=== PATIENT | male | born 1985 | race Two or more races ===

== ENCOUNTER → 2019-12-28 | Outpatient (CLI) | payer OTHER ==
[2019-12-28 16:51] LABS: Free T4 (Free Thyroxine) 1.18 ng/dL (0.89-1.76); Prolactin 4.72 ng/mL (2.8-29.2); Prostate Specific Antigen 1.21 ng/mL (0.0-4.0)
[2019-12-28 16:52] LABS: Follicle Stimulating Hormone 2.27 IU/L (1.4-18.1); Leuteinizing Hormone 2.9 IU/L (1.5-9.3)
== END | disposition home or self-care (01) ==
LOC: LAB 15:55
PROVIDERS: ATTEND Urology
DX: R97.20 Elevated prostate specific antigen [PSA] (principal); N52.9 Male erectile dysfunction, unspecified
CPT/HCPCS: 36415; 83001; 83002; 84146; 84153; 84154; 84403; 84439